=== PATIENT | female | born 1950 | race Asian ===

== ENCOUNTER → 2016-11-22 | Outpatient (CLI) | payer OTHER ==
[~2016-11-22] MED LIST: ASPI-496 PO; CHOL20002 PO; LIDOCAINE 1%, 20ML ONE; MOEX1TAB PO; ROSU5TAB PO
== END | disposition home or self-care (01) ==
LOC: RAD 09:19
PROVIDERS: ATTEND Family Medicine
DX: E04.1 Nontoxic single thyroid nodule (principal)
CPT/HCPCS: 76942; 88173; J3490

== ENCOUNTER → 2017-02-18 | Outpatient (CLI) | payer OTHER ==
[~2017-02-18] MED LIST changes: -LIDOCAINE 1%, 20ML ONE
== END | disposition home or self-care (01) ==
LOC: CFH 08:43
PROVIDERS: ATTEND Obstetrics & Gynecology
DX: Z12.31 Encounter for screening mammogram for malignant neoplasm of breast (principal); Z13.820 Encounter for screening for osteoporosis
CPT/HCPCS: 77080; G0202

== ENCOUNTER → 2017-03-29 | Outpatient (CLI) | payer OTHER ==
[~2017-03-29] MED LIST changes: +ATOR10TA9 PO
[2017-03-29 12:23] LABS: ASPARTATE AMINO TRANSFERASE 14 U/L (15-37); BLOOD UREA NITROGEN 17 mg/dL (7-18)
== END ==
LOC: STAR 11:09
PROVIDERS: ATTEND Orthopaedic Surgery
DX: Z01.818 Encounter for other preprocedural examination (principal); M85.3 Osteitis condensans; M65.312 Trigger thumb, left thumb
CPT/HCPCS: 36415; 80053; 93005

== ENCOUNTER 2017-04-04 13:24 | Day surgery (SDC) | payer BC, OTHER ==
[~2017-04-04] VITALS: Ht 161.3 cm; Wt 72.6 kg
[2017-04-04] MEDS ORDERED: LACTATED RINGERS 1,000 ML IV SCH (13:58)
[2017-04-04 14:00] VITALS: BP 132/66
[2017-04-04] MEDS ORDERED: FENTANYL PF 100 MCG/2ML ONE (14:34)
[2017-04-04] MEDS ORDERED: MIDAZOLAM 1 MG/ML, 2ML ONE (14:34)
[2017-04-04] MEDS ORDERED: PROPOFOL 10 MG/ML, 20ML ONE (15:41)
[2017-04-04] MEDS ORDERED: ROCURONIUM 10 MG/ML,10ML ONE (15:41)
[2017-04-04] MEDS ORDERED: ONDANSETRON 2MG/ML, 2ML ONE (15:41)
[2017-04-04] MEDS ORDERED: DEXAMETHASONE 4 MG/ML, 1ML ONE (15:41)
[2017-04-04] MEDS ORDERED: SUCCINYLCHOLINE 20 MG/ML, 10ML ONE (15:41)
[2017-04-04] MEDS ORDERED: CEFAZOLIN 1,000 MG ONE (15:41)
[2017-04-04] MEDS ORDERED: BUPIVACAINE/PF-EPI 0.5% 1:200K INFIL ONE (16:10)
[2017-04-04] MEDS ORDERED: METOCLOPRAMIDE 5 MG/ML, 2ML IV PRN (16:30)
[2017-04-04] MEDS ORDERED: HYDROmorphone 1 MG/ML, 1ML IV PRN (16:30)
[2017-04-04] MEDS ORDERED: OXYcodone 5 MG/5 ML ORAL.SOL UDC PO PRN (16:30)
[2017-04-04] MEDS ORDERED: ACETAMINOPHEN 325 MG TABLET PO PRN (16:30)
[2017-04-04] MEDS ORDERED: ONDANSETRON 2MG/ML, 2ML IVPush PRN (16:30)
[2017-04-04] MEDS ORDERED: FENTANYL PF 100 MCG/2ML IV PRN (16:30)
[2017-04-04] MEDS ORDERED: hydrALAzine 20 MG/ML, 1ML IV PRN (16:30)
[2017-04-04] MEDS ORDERED: LABETALOL 5MG/ML, 20ML IV PRN (16:30)
[2017-04-04] MEDS ORDERED: ACETAMINOPHEN 325 MG TABLET ONE (16:44)
[2017-04-04] MEDS ORDERED: OXYcodone 5 MG/5 ML ORAL.SOL UDC ONE (16:44)
== END 2017-04-04 18:50 | disposition home or self-care (01) ==
LOC: OUT 13:24 → MERGE 15:30 → OUT 18:50
PROVIDERS: ATTEND Orthopaedic Surgery
DX: M65.312 Trigger thumb, left thumb (principal); M65.311 Trigger thumb, right thumb; Z79.82 Long term (current) use of aspirin
CPT/HCPCS: 26055; J0171; J0330; J0690; J1100; J2250; J2405; J2704; J3010; J3490; J7120

== ENCOUNTER → 2018-01-05 | Outpatient (CLI) | payer MEDICARE ==
[2018-01-05 13:56] LABS: MICROSCOPIC AUTO
[2018-01-05 13:57] LABS: CULTURE INDICATED? YES
[2018-01-05 14:04] LABS: ALANINE AMINOTRANSFERASE 28 U/L (12-78); ALBUMIN 3.7 g/dL (3.4-5.0); ANION GAP 8 mmol/L (5-15); CALCIUM 9.2 mg/dL (8.5-10.1); CHLORIDE 104 mmol/L (98-107)
[2018-01-05 14:07] LABS: ALKALINE PHOSPHATASE 66 U/L (45-117); BILIRUBIN,TOTAL 0.5 mg/dL (0.2-1.0); TOTAL PROTEIN 8.5 g/dL (6.4-8.2)
== END | disposition home or self-care (01) ==
LOC: STAR 12:45
PROVIDERS: ATTEND Obstetrics & Gynecology Gynecology
DX: Z01.818 Encounter for other preprocedural examination (principal); T83.721A Exposure of implanted vaginal mesh into vagina, initial encounter; I45.81 Long QT syndrome
CPT/HCPCS: 36415; 80053; 81001; 87086; 87147; 93005

== ENCOUNTER 2018-01-10 09:21 | Day surgery (SDC) | payer MEDICARE ==
[2018-01-05 13:53] VITALS: BP 127/80
[~2018-01-10] VITALS: Ht 160 cm; Wt 73.9 kg
[~2018-01-10 09:21] MED LIST changes: -CHOL20002 PO; +CHOL200052 PO; +LIDOCAINE 1%-EPI 1:100K, 30ML ONE
[2018-01-10] MEDS ORDERED: LACTATED RINGERS 1,000 ML IV SCH (09:58)
[2018-01-10] MEDS ORDERED: LIDOCAINE-MPF 1%, 2ML INFIL ONE (10:00)
[2018-01-10 10:01] VITALS: BP 127/80
[2018-01-10] MEDS ORDERED: SCOPOLAMINE PATCH, 1.5MG PATCH.TD72 TD ONE ×2 (11:23)
[2018-01-10] MEDS ORDERED: FENTANYL PF 100 MCG/2ML ONE (11:26)
[2018-01-10] MEDS ORDERED: MIDAZOLAM 1 MG/ML, 2ML ONE (11:26)
[2018-01-10] MEDS ORDERED: PROPOFOL 10 MG/ML, 20ML ONE (11:45)
[2018-01-10] MEDS ORDERED: ONDANSETRON 2MG/ML, 2ML ONE (11:45)
[2018-01-10] MEDS ORDERED: DEXAMETHASONE 4 MG/ML, 1ML ONE (11:45)
[2018-01-10] MEDS ORDERED: KETOROLAC 30 MG/1 ML ONE ×2 (11:45→12:12)
[2018-01-10] MEDS ORDERED: CEFAZOLIN 1,000 MG ONE (11:45)
[2018-01-10] MEDS ORDERED: METRONIDAZOLE PMX 500MG/100ML 100 ML ONE (11:53)
[2018-01-10] MEDS ORDERED: MIDAZOLAM 1 MG/ML, 2ML IV PRN (12:30)
[2018-01-10] MEDS ORDERED: PROMETHAZINE 12.5 MG SUPP PR PRN (12:30)
[2018-01-10] MEDS ORDERED: PROMETHAZINE 25 MG/ML, 1ML IV PRN (12:30)
[2018-01-10] MEDS ORDERED: LORazepam 2 MG/ML, 1ML IVPush PRN (12:30)
[2018-01-10] MEDS ORDERED: MORPHINE SULFATE 4 MG/ML, 1ML IVPush PRN (12:30)
[2018-01-10] MEDS ORDERED: ALBUTEROL SULFATE 2.5 MG/3 ML NPPB PRN (12:30)
[2018-01-10] MEDS ORDERED: OXYcodone 5 MG/5 ML ORAL.SOL UDC PO PRN (12:30)
[2018-01-10] MEDS ORDERED: ACETAMINOPHEN 325 MG TABLET PO PRN (12:30)
[2018-01-10] MEDS ORDERED: ONDANSETRON ODT 8 MG PO PRN (12:30)
[2018-01-10] MEDS ORDERED: hydrALAzine 20 MG/ML, 1ML IV PRN (12:30)
[2018-01-10] MEDS ORDERED: LABETALOL 5MG/ML, 20ML IV PRN (12:30)
[2018-01-10] MEDS ORDERED: MEPERIDINE/PF 25MG/0.5ML IVPush PRN (12:30)
[2018-01-10] MEDS ORDERED: HYDROmorphone 1 MG/ML, 1ML IV PRN (12:30)
[2018-01-10] MEDS ORDERED: ONDANSETRON 2MG/ML, 2ML IV PRN (12:30)
[2018-01-10] MEDS ORDERED: EPHEDRINE 50 MG/ML, 1ML IVPush PRN (12:30)
[2018-01-10] MEDS ORDERED: FENTANYL PF 100 MCG/2ML IV PRN (12:30)
== END 2018-01-10 16:05 | disposition home or self-care (01) ==
LOC: OUT 09:21 → MERGE 11:30 → OUT 16:05
PROVIDERS: ATTEND Obstetrics & Gynecology Gynecology
DX: T83.721A Exposure of implanted vaginal mesh into vagina, initial encounter (principal); N95.0 Postmenopausal bleeding; I10 Essential (primary) hypertension; E78.5 Hyperlipidemia, unspecified; Z88.8 Allergy status to other drugs, medicaments and biological substances; Z79.82 Long term (current) use of aspirin; Y83.8 Other surgical procedures as the cause of abnormal reaction of the patient, or of later complication, without mention of misadventure at the time of the procedure; Y92.89 Other specified places as the place of occurrence of the external cause
CPT/HCPCS: 57295; 88305; J0690; J1100; J1885; J2250; J2405; J2704; J3010; J3490; J7120; 88312

== ENCOUNTER → 2018-10-11 | Outpatient (CLI) | payer MEDICARE ==
[~2018-10-11] MED LIST changes: -LIDOCAINE 1%-EPI 1:100K, 30ML ONE
== END | disposition home or self-care (01) ==
LOC: CFH 14:59
PROVIDERS: ATTEND Family Medicine
DX: E04.1 Nontoxic single thyroid nodule (principal)
CPT/HCPCS: 76536

== ENCOUNTER 2018-12-07 11:58 | Outpatient (CLI) | payer MEDICARE | END 2018-12-07 23:59 | disposition home or self-care (01) | LOC: STAR 11:58 | PROVIDERS: ATTEND Surgery Vascular Surgery | DX: Z01.818 Encounter for other preprocedural examination (principal); D17.1 Benign lipomatous neoplasm of skin and subcutaneous tissue of trunk | CPT/HCPCS: 36415; 80053; 93005 ==

== ENCOUNTER 2018-12-11 07:19 | Day surgery (SDC) | payer MEDICARE ==
[~2018-12-11] VITALS: Ht 160 cm; Wt 73.7 kg
[2018-12-11 07:45] VITALS: BP 143/76
== END 2018-12-11 12:53 | disposition home or self-care (01) ==
LOC: OUT 07:19
PROVIDERS: ATTEND Surgery Vascular Surgery
DX: D17.1 Benign lipomatous neoplasm of skin and subcutaneous tissue of trunk (principal); I10 Essential (primary) hypertension; E78.5 Hyperlipidemia, unspecified; Z88.8 Allergy status to other drugs, medicaments and biological substances; Z90.49 Acquired absence of other specified parts of digestive tract; Z90.710 Acquired absence of both cervix and uterus; Z79.899 Other long term (current) drug therapy; Z79.82 Long term (current) use of aspirin
CPT/HCPCS: 21933; 88304; J0330; J0690; J1100; J1885; J2405; J2704; J3010

== ENCOUNTER → 2019-06-19 | Outpatient (CLI) | payer MEDICARE ==
[~2019-06-19] MED LIST changes: +BENA1TAB9 PO
== END | disposition home or self-care (01) ==
LOC: CFH 10:20
PROVIDERS: ATTEND Specialist
DX: E04.1 Nontoxic single thyroid nodule (principal); D34 Benign neoplasm of thyroid gland
CPT/HCPCS: 76536

== ENCOUNTER → 2020-11-25 | Outpatient (CLI) | payer MEDICARE | END | disposition home or self-care (01) | LOC: CFH 12:25 | PROVIDERS: ATTEND Family Medicine | DX: Z12.31 Encounter for screening mammogram for malignant neoplasm of breast (principal) | CPT/HCPCS: 77063; 77067 ==